=== PATIENT | male | born 1985 | race Caucasian/White ===

== ENCOUNTER 2018-11-30 01:14 | Emergency (ER) | payer SELFPAY ==
[2018-11-30] VITALS (7 sets, daily range): BP systolic 118–144; BP diastolic 66–100
[~2018-11-30] VITALS: Ht 172.7 cm; Wt 59.0 kg
--- NOTE | 2018-11-30 01:30 | NUR ---
ED Nurse Note: Pt BIBA from home c/o OD. Pt stated he took meth earlier in the day and just took 1 valium. Pt refusing to answer my questions. Pt is awake and alert x3,
--- NOTE | 2018-11-30 01:43 | Emergency Room Report ---
History of Present Illness General Chief Complaint: Substance Abuse Source: Patient, EMS Present Illness HPI This is a 33-year-old male with a history of HIV/AIDS. He reportedly have a history of PE for which he takes Lovenox twice a day. He presents with chief complaint of overdose. His friends called 911 because he keep passing out/ falling asleep. Patient admits to using methamphetamine around 1 PM today. He had to Valium about an hour ago. He denies suicidal thoughts or homicidal thoughts. Said that he has a lot of stress because of his medical issue. Noncompliant with his medication. No hallucination. Allergies: Coded Allergies: ETOMIDATE (Verified Allergy, Unknown, 11/30/18) Patient History Past Medical History: see triage record, old chart reviewed, HIV Past Surgical History: other Pertinent Family History: none Social History: Reports: smoking, alcohol use, drug use Immunizations: other Reviewed Nursing Documentation: PMH: Agreed; PSxH: Agreed Nursing Documentation-PMH Past Medical History: No Stated History Hx Cardiac Problems: Yes - GA 03/2018, PE Hx Cancer: Yes Review of Systems Eye: Denies: eye pain, blurred vision ENT: Denies: ear pain, nose congestion, throat swelling Respiratory: Denies: cough, shortness of breath Cardiovascular: Denies: chest pain, palpitations Gastrointestinal: Denies: abdominal pain, diarrhea, nausea, vomiting Musculoskeletal: Denies: back pain, joint pain Skin: Denies: rash Psychiatric: Reports: depressed feelings Neurological: Denies: headache, numbness Endocrine: Denies: increased thirst, increased urine Hematologic/Lymphatic: Denies: easy bruising All Other Systems: negative except mentioned in HPI Physical Exam Vital Signs Date Time Temp Pulse Resp B/P (MAP) Pulse Ox O2 Delivery O2 Flow Rate FiO2 11/30/18 01:27 98.2 112 22 144/100 99 Room Air Vitals unremarkable Sp02 EP Interpretation: reviewed, normal General Appearance: well appearing, no apparent distress, alert Head: normocephalic, atraumatic Eyes: bilateral eye PERRL, bilateral eye EOMI ENT: hearing grossly normal, normal pharynx Neck: full range of motion, supple, no meningismus Respiratory: chest non-tender, lungs clear, normal breath sounds Cardiovascular #1: regular rate, rhythm, no murmur Gastrointestinal: normal bowel sounds, non tender, no mass, no organomegaly, no bruit, non-distended Musculoskeletal: back normal, gait/station normal, normal range of motion Neurologic: alert, oriented x3, responsive Psychiatric: depressed affect Medical Decision Making Diagnostic Impression: Primary Impression: Substance abuse ER Course Patient presents with substance abuse. He is noncompliant with his medication. He is not suicidal homicidal. Will observe until he is more awake and alert. This patient is a chronic risk of self injury due to poor impulse control, limited coping skills, and judgment intermittently impaired by intoxication. I believe that the available clinical evidence to suggest that these characteristics derived primarily from personality disorder and are likely very stable over time. Hospitalization would likely attenuate risk of self-harm only during long term period, without lasting risk reduction. Serious self-harm , while possible, would likely be inadvertent, and because of impulsivity, and foreseeable. For these reasons, I do not believe hospitalization would provide meaningful reduction in risk of self-harm. Last Vital Signs Date Time Temp Pulse Resp B/P (MAP) Pulse Ox O2 Delivery O2 Flow Rate FiO2 11/30/18 01:27 112 20 Room Air 11/30/18 01:27 98.2 144/100 99 Status: improved Disposition: HOME, SELF-CARE Condition: Stable Patient Instructions: Substance Use Disorder Additional Instructions: Take your medication as prescribed. Stop using drugs. Go to rehab. Follow-up with your doctor in 7 days. Take your medication. Return if worse. Imtiaz Ramirez MD Nov 30, 2018 01:43
--- NOTE | 2018-11-30 03:30 | NUR ---
ED Nurse Note: Pt resting in bed, eyes -closed non labored breathing. Pt arousable to name, offered water and toiletting, pt declined at this time. No further orders at this time. Will continue to montitor
--- NOTE | 2018-11-30 05:24 | NUR ---
ED Nurse Note: Pt resting in bed, repositioned to left side., eyes -closed non labored breathing. Pt arousable to name. No further orders at this time. Will continue to montitor
--- NOTE | 2018-11-30 06:33 | NUR ---
ED Nurse Note: Pt awake and alert, answering questions. Pt is requesting to speak to a ornamental metal worker. Pt accepted a sandwich and juice. Will continue to monitor
--- NOTE | 2018-11-30 07:04 | NUR ---
HAND-OFF: Report given to FELIZ Sandoval.
--- NOTE | 2018-11-30 07:13 | NUR ---
ED Nurse Note: RECEIVED REPORT FROM LEYDI PIPER, PT RESTING ON BED AND ALREADY ATE HIS BREAKFAST. WAITING FOR [employer] CONSULT.
--- NOTE | 2018-11-30 08:04 | NUR ---
ED Nurse Note: PATIENT ASKED FOR MORE FOOD. TUNA SANDWICH AND APPLE JUICE PROVIDED.
--- NOTE | 2018-11-30 08:55 | NUR ---
ED Nurse Note: Message left to social welfare administrator and case management office.
--- NOTE | 2018-11-30 09:35 | NUR ---
ED Nurse Note: warp workerMelina at bedside.
--- NOTE | 2018-11-30 09:45 | NUR ---
Social Service Note SW met with patient to assess for services upon discharge. Patient is alert, oriented and verbally responsive. Patient stated he didn't require resources and that he was told by nursing to speak with SW for psych voluntary placement. Patient previously didn't indicated suicidial ideation to nursing or MD. Patient states three weeks ago he was placed on a 5150 hold for violent behavior/danger to others. Patient's behavior currently has been appropriate and pleasant. Patient states he has a lot of emotional problems and is currently feeling overwhelmed. Patient states he is planning to OD on heroin. Patient admits to smoking meth every couple of days. Patient states having a prior heroin OD. Patient states he didn't follow up with his mental health appointment upon discharge from previous inpt psych facility. Patient is not taking medication. SW inquired about HIV follow up care. Patient states he receives HIV care from [facility] [address] but currently is not on medication and can remember the last time he received services. Patient denies being homeless and states the address provided [address] [place] [address] is a condo he can return too. Patient's contact number is a phone number from [place] [phone]. Patient states he has no intention in returning to [place]. Patient states his emergency contact is his ex-partner Nico who's phone is connected to his number. Patient requesting transfer to a an inpatient [facility] facility. ARIANE informed primary nurse and MD. Patient will be referred pending medical clearance.
--- NOTE | 2018-11-30 09:45 | NUR ---
ED Nurse Note: PERINATAL DIRECTOR EDER AT THE BED SIDE. PT WANTS A VOLUNTARY PSYCH PLACEMENT AT THIS TIME AND STATES HE HAS PERSONAL ISSUES. NOT STATING IF HE IS SI. BELONGINGS PLACED ON PSYCH LOCKER #2.
--- NOTE | 2018-11-30 10:00 | NUR ---
ED Nurse Note: DAVID CHAVEZ AT BEDSIDE A SITTER.
--- NOTE | 2018-11-30 10:07 | NUR ---
ED Nurse Note: ALESSANDROE BRIANDA/TAMI THEN SENT.
[2018-11-30 10:18] LABS: APPEARANCE,URINE CLEAR; BILIRUBIN, URINE NEGATIVE (NEGATIVE); GLUCOSE, URINE (UA) NEGATIVE (NEGATIVE); HEMATOCRIT 36.6 % (42.0-52.0); HEMOGLOBIN 11.8 G/DL (14.2-18.0); KETONES,URINE 2+ (NEGATIVE); LEUKOCYTE ESTERASE ,URINE NEGATIVE (NEGATIVE); MEAN CORPUSCULAR VOLUME 80 FL (80-99); NITRITE,URINE NEGATIVE (NEGATIVE); PH,URINE 5 (4.5-8.0); PLATELET COUNT 251 K/UL (150-450); PROTEIN,URINE NEGATIVE (NEGATIVE); RED BLOOD COUNT 4.57 M/UL (4.70-6.10); RED CELL DISTRIBUTION WIDTH 12.6 % (11.6-14.8); UROBILINOGEN,URINE NORMAL MG/DL (0.0-1.0); WHITE BLOOD COUNT 3.3 K/UL (4.8-10.8)
[2018-11-30 10:26] LABS: COLOR,URINE YELLOW
--- NOTE | 2018-11-30 10:30 | NUR ---
ED Nurse Note: EMILY SITTER AT THE BED SIDE.
[2018-11-30 10:36] LABS: ANION GAP 6 mmol/L (5-15); BLOOD UREA NITROGEN 25 mg/dL (7-18); CALCIUM 8.9 MG/DL (8.5-10.1); CARBON DIOXIDE 30 MMOL/L (21-32); CHLORIDE 105 MMOL/L (98-107); CREATININE 1.1 MG/DL (0.55-1.30); POTASSIUM 4.2 MMOL/L (3.5-5.1); SODIUM 141 MMOL/L (136-145)
[2018-11-30 10:40] LABS: ALANINE AMINOTRANSFERASE 28 U/L (12-78); ALBUMIN 3.2 G/DL (3.4-5.0); ALBUMIN/GLOBULIN RATIO 0.8 (1.0-2.7); ALKALINE PHOSPHATASE 85 U/L (46-116); ASPARTATE AMINO TRANSFERASE 30 U/L (15-37); BILIRUBIN,TOTAL 0.3 MG/DL (0.2-1.0)
--- NOTE | 2018-11-30 11:30 | NUR ---
ED Nurse Note: MEGAN LIMA SITTER AT THE BED SIDE.
--- NOTE | 2018-11-30 11:32 | NUR ---
ED Nurse Note: PT NOW STATES THAT HE WANTS TO HURT HIMSELF WITH HEROIN OVERDOSE. CHARGE NURSE GD ROACH. MEGAN SITTER AT THE BED SIDE.
--- NOTE | 2018-11-30 12:00 | NUR ---
ED Nurse Note: LUNCH MEAL PROVIDED. VIJAY GUZMAN AT THE BED SIDE.
[2018-11-30] MEDS ORDERED: ADDERAL20 MG ORAL (12:44)
[2018-11-30] MEDS ORDERED: LOVENOX10 M2 SUBQ (12:44)
[2018-11-30] MEDS ORDERED: CLONAZEPAM2 MG PO (12:44)
[2018-11-30] MEDS ORDERED: BACTRIM DS TAB1 EAC1 ORAL (12:44)
--- NOTE | 2018-11-30 13:33 | NUR ---
Note luis enrique in EDM - 11/30/18 at 1335 by TARSHA ED Nurse Note: PT MOVED FROM BED 7 TO OB. PT AMBULATORY AND AOX4. PT STATES HE DOES HAVE SI. WHEN ASKED IF HE HAS A PLAN, PT STATES, "EVERYTHING IS DOCUMENTED." PT DOES NOT WISH TO ANSWER QUESTIONS.
--- NOTE | 2018-11-30 13:33 | NUR ---
ED Nurse Note: PT MOVED FROM BED 7 TO OB. PT AMBULATORY AND AOX4. PT STATES HE DOES HAVE SI. WHEN ASKED IF HE HAS A PLAN, PT STATES, "EVERYTHING IS DOCUMENTED." PT DOES NOT WISH TO ANSWER QUESTIONS. SITTER REMAINS AT BEDSIDE.
--- NOTE | 2018-11-30 13:41 | NUR ---
HAND-OFF: Report given to rizwan PIPER.
[2018-11-30] MEDS ORDERED: DIFLUCAN200 MG ORAL (13:42)
[2018-11-30] MEDS ORDERED: KEPPRA1000 MG ORAL (13:43)
--- NOTE | 2018-11-30 15:01 | NUR ---
ED Nurse Note: PT ACC[facility]ED TO [facility]. REPORT GIVEN TO FELIZ WALLACE. FACILITY READY TO ACCEPT PT AND IS AWARE OF TRANSPORTATION E[facility] TO [facility].
--- NOTE | 2018-11-30 15:36 | NUR ---
ED Nurse Note: LIFELINE AT BEDSIDE. REPORT GIVEN TO EMS. PT'S BELONGINGS TAKEN OUT OF LOCKER #2 AND GIVEN TO EMS. PT TRANSFERRED TO [facility] VIA AMBULANCE ESCORTED BY EMS. VSS.
--- NOTE | 2018-11-30 15:40 | NUR ---
ED Nurse Note: D/C sitter as ambulance personnel is at beside.
== END 2018-11-30 15:42 | disposition home or self-care (01) ==
LOC: EDBD 01:14 → EMR 01:50
DX: F19.10 Other psychoactive substance abuse, uncomplicated (principal); Z91.14 Patient's other noncompliance with medication regimen; B20 Human immunodeficiency virus [HIV] disease; Z86.711 Personal history of pulmonary embolism; F17.200 Nicotine dependence, unspecified, uncomplicated; I25.2 Old myocardial infarction; Z85.9 Personal history of malignant neoplasm, unspecified
CPT/HCPCS: 36415; 80053; 80307; 81003; 85007; 85025; 99284; G0480; 80329